=== PATIENT | male | born 1935 | race Caucasian/White ===

== ENCOUNTER → 2019-02-12 | Outpatient (CLI) | payer MEDICARE ==
[~2019-02-12] MED LIST: BLOOD PRESSURE MEDS
== END ==
LOC: M.LAB 04:38
DX: Z01.812 Encounter for preprocedural laboratory examination (principal)

== ENCOUNTER → 2019-03-19 | Outpatient (CLI) | payer MEDICARE ==
[2019-03-19 09:06] LABS: CREATININE 1.3 mg/dL (0.6-1.3)
== END ==
LOC: M.LAB 03-16 08:00 → M.CT 03-16 09:30 → M.LAB 08:17
PROVIDERS: Physician Assistant
DX: K76.89 Other specified diseases of liver (principal); K57.30 Diverticulosis of large intestine without perforation or abscess without bleeding; Z87.19 Personal history of other diseases of the digestive system

== ENCOUNTER → 2020-08-23 | Outpatient (CLI) | payer MEDICARE | LOC: M.LAB 03:26 | PROVIDERS: ATTEND Anesthesiology | DX: E87.6 Hypokalemia (principal) ==

== ENCOUNTER → 2021-08-24 | Outpatient (CLI) | payer MEDICARE | LOC: M.RAD 14:40 | PROVIDERS: ATTEND Internal Medicine | DX: R05 Cough (principal) ==

== ENCOUNTER 2021-09-29 21:27 | Emergency (ER) | payer MEDICARE ==
[~2021-09-29] VITALS: Ht 170.2 cm; Wt 75.9 kg
[2021-09-29] MEDS ORDERED: VERAPAMIL ER180 M1 PO ×2 (21:37→22:57)
[2021-09-29] MEDS ORDERED: LOSARTAN POTASS50 MG PO ×2 (21:38→22:58)
[2021-09-29] MEDS ORDERED: TOPROL XL25 MG PO (21:38)
[2021-09-29] MEDS ORDERED: RENAL-VITE TAB0.8 MG PO ×2 (21:39→23:00)
[2021-09-29] MEDS ORDERED: OMEPRAZOLE20 M2 PO (21:39)
[2021-09-29] MEDS ORDERED: SALT TABLETS (22:58)
[2021-09-29] MEDS ORDERED: LOPRESSOR50 MG PO (22:59)
[2021-09-29] MEDS ORDERED: CENTRUM SILVER1 EACH PO (23:00)
[2021-09-29] MEDS ORDERED: IRON18 M1 PO (23:00)
[2021-09-29] MEDS ORDERED: MIRALAX119 GM PO (23:01)
[2021-09-29] MEDS ORDERED: OMEPRAZOLE 20 M20 M1 PO (23:01)
[2021-09-29] MEDS ORDERED: HYDRALAZINE 10M10 MG PO (23:01)
[2021-09-29 23:03] LABS: ABSOLUTE BASOPHILS 0.1 thou/uL (0.0-0.2); ABSOLUTE EOSINOPHILS 0.2 thou/uL (0.0-0.7); ABSOLUTE LYMPHOCYTES 0.9 thou/uL (0.8-5.3); ABSOLUTE MONOCYTES 0.7 thou/uL (0.0-1.2); ABSOLUTE NEUTROPHILS 3.1 thou/uL (1.6-8.1); BASOPHILS 1.2 %; EOSINOPHILS 4.4 %; HEMATOCRIT 37.1 % (42.0-52.0); HEMOGLOBIN 12.3 gm/dL (14.0-18.0); LYMPHOCYTES 18.3 %; MCH 28.1 pg (26.0-34.0); MCHC 33.2 g/dL (28.0-37.0); MCV 84.5 fL (80.0-100.0); MONOCYTES 13.5 %; MPV 6.4 fl. (7.2-11.1); NUCLEATED RBCS 0 /100WBC; PLATELET COUNT* 242 thou/uL (150-400); POLYS 62.6 %; RBC 4.39 mil/uL (4.50-6.00); RDW-CV 14.7 % (10.5-14.5); WBC 4.9 thou/uL (4.0-11.0)
[2021-09-29 23:03] LABS: CALCIUM 9.1 mg/dL (8.5-10.1); CREATININE 1.3 mg/dL (0.6-1.3); POTASSIUM 4.1 mmol/L (3.5-5.1)
[2021-09-29 23:14] LABS: MAGNESIUM 2.4 mg/dL (1.8-2.4); TOTAL BILIRUBIN 0.3 mg/dL (<0.1-1.0); TOTAL PROTEIN 7.5 g/dL (6.4-8.2)
[2021-09-29 23:48] LABS: URINE BILIRUBIN NEGATIVE (Negative); URINE BLOOD TRACE (Negative); URINE CLARITY CLEAR; URINE COLOR STRAW; URINE GLUCOSE-RANDOM NEGATIVE (Negative); URINE KETONES NEGATIVE (Negative); URINE LEUKOCYTES-REFLEX NEGATIVE (Negative); URINE NITRITE-REFLEX NEGATIVE (Negative); URINE PROTEIN NEGATIVE (Negative); URINE UROBILINOGEN 0.2 E.U./dl (0.2-1.0)
[2021-09-30 00:38] VITALS: BP 144/68
--- NOTE | 2021-09-30 13:25 | EKG ---
[place] [address] ELECTROCARDIOGRAM REPORT Name: RIGOBERTOELISABIANCA PUENTES Room: [facility]#: [id number] Admission: 09/29/21 Attend Phys: Discharge: 09/30/21 Date of : 39 Date of Service: 09/29/212136 Report #: [id number] THIS REPORT FOR: //name// [facility] ED Test Date: 2021-09-29 Test Time: 21:37:11 Pat Name: BIANCA MCCAIN Department: Room: Gender: M Wheel Loader Operator: : 1935 Requested By: Lisa Sy Order Number: [id number] MD: Varinder Saavedra Measurements Intervals [place] Rate: 76 P: 74 AR: 159 QRS: 7 QRSD: 144 T: 21 QT: 428 QTc: 482 Interpretive Statements Sinus rhythm Right bundle branch block No previous ECG available for comparison Electronically Signed On 09-30-2021 13:25:22 CDT by Varinder Saavedra [email or web address] <ELECTRONICALLY SIGNED> By: Varinder Saavedra MD, [facility] 09/30/21 1325 36 36 Varinder Saavedra MD, FAC /EPI
== END 2021-09-30 00:38 | disposition home or self-care (01) ==
LOC: M.ERS 21:27
PROVIDERS: Emergency Medicine
DX: I10 Essential (primary) hypertension (principal); R42 Dizziness and giddiness; K21.9 Gastro-esophageal reflux disease without esophagitis; Z79.899 Other long term (current) drug therapy

== ENCOUNTER → 2021-10-02 | Outpatient (CLI) | payer MEDICARE ==
[~2021-10-02] MED LIST changes: +CENTRUM SILVER1 EACH PO; +HYDRALAZINE 10M10 MG PO; +IRON18 M1 PO; +LOPRESSOR50 MG PO; +LOSARTAN POTASS50 MG PO; +MIRALAX119 GM PO; +OMEPRAZOLE 20 M20 M1 PO; +OMEPRAZOLE20 M2 PO; +RENAL-VITE TAB0.8 MG PO; +SALT TABLETS; +TOPROL XL25 MG PO; +VERAPAMIL ER180 M1 PO
== END ==
LOC: M.ULTRA 08:00
PROVIDERS: ATTEND Internal Medicine
DX: I10 Essential (primary) hypertension (principal)